=== PATIENT | female | born 1940 | race Caucasian/White ===

== ENCOUNTER 2022-05-11 18:33 | Inpatient (IN) | payer MEDICARE, OTHER ==
[~2022-05-11] VITALS: Ht 175.3 cm; Wt 72.1 kg
[2022-05-11 18:35] VITALS: BP 144/96
--- NOTE | 2022-05-11 18:35 | NUR ---
DR. MONTAÑO EVALUATING PT AT BEDSIDE
--- NOTE | 2022-05-11 18:35 | NUR ---
PATIENT ATTACHED TO TELEMETRY BOX AND TRANSPORTED TO CT BY SAJAN ACCOMPANIED BY PRIMARY RN
--- NOTE | 2022-05-11 18:36 | NUR ---
CODE STROKE CALLED BY DR. MONTAÑO
--- NOTE | 2022-05-11 18:40 | NUR ---
81/F BIBA FROM HOME C/O INCREASED ALOC TODAY. PER EMS, PATIENT DISCHARGED FROM [facility] FOR UTI WITH RX ANTIBIOTICS; COMPLETED ABX 2-3 DAYS AGO. PER EMS, PATIENT NOTED WITH DYSPHASIA EN ROUTE TO ER. PATIENT'S DAUGHTER REPORTS PATIENT LAST SEEN NORMAL @ 1500 BY AT HOME. PATIENT'S DAUGHTER STATES PATIENT STATES SHE GOT HOME AT 1800 AND NOTED PATIENT WITH INCREASED CONFUSION, LETHARGY, AND "MUMBLING SPEECH/ONLY ABLE TO STATE FIRST NAME." DAUGHTER REPORTS PATIENT BASELINE MENTATION A&OX4. PT COMPLETED "DEMENTIA TEST 4 MONTHS AGO WITH MRI SCAN SHOWING NOTHING ABNORMAL - AGE-RELATED." PATIENT PRESENTS A&0X1 TO NAME, DIFFICULTY ARTICULATING WORDS. DR. MONTAÑO AT BEDSIDE. BED LOCKED IN LOWEST POSITION, SIDE RAILS X 2. PMH: HLD, UTI, COPD, HYPOTHYROIDISM MEDS: LEVOTHYROXINE, GABAPENTIN, NEUROTIN, TRAMADOL, TYLENOL #3 NKDA
--- NOTE | 2022-05-11 18:44 | NUR ---
BLOOD DRAWN AND SENT TO LAB. CHEKO DRAWN AND SENT TO LAB
--- NOTE | 2022-05-11 18:52 | NUR ---
PATIENT RETURNED FROM CT BY SAJAN; BACK ONTO BEAMER HELPER.
[2022-05-11 18:54] LABS: BASOPHILS % (AUTO) 0.7 % (0.0-2.0); EOSINOPHILS % (AUTO) 0.7 % (0.0-4.0); HEMATOCRIT 36.1 % (36-48); HEMOGLOBIN 11.9 g/dL (12.0-16.0); LYMPHOCYTES # (AUTO) 1.7 K/uL (2.5-16.5); LYMPHOCYTES % (AUTO) 24.4 % (20.5-51.1); MEAN CORPUSCULAR HEMOGLOBIN 31 pg (27-31); MEAN CORPUSCULAR HGB CONC 33 g/dL (33-37); MONOCYTES # (AUTO) 0.9 K/uL (0.8-1.0); MONOCYTES % (AUTO) 13.1 % (1.7-9.3); NEUTROPHILS # (AUTO) 4.2 K/uL (1.8-7.7); NEUTROPHILS % (AUTO) 61.1 % (42.2-75.2); PLATELET COUNT (AUTO) 369 K/uL (140-450); RED BLOOD CELL COUNT(AUTO) 3.88 MIL/uL (4.20-5.40); RED CELL DISTRIBUTION WIDTH 14.6 % (11.6-13.7); WHITE BLOOD COUNT (AUTO) 6.9 K/uL (4.8-10.8)
--- NOTE | 2022-05-11 18:57 | NUR ---
ARIA (DAUGHTER) [phone] PHONE CALL WENT TO [employer].
[2022-05-11 19:12] LABS: PROTHROMBIN TIME 9.8 secs (10.8-13.4)
[2022-05-11 19:17] LABS: ALBUMIN 3.8 g/dL (3.4-5.0); ANION GAP 14.6 (8-16); ASPARTATE AMINOTRANSFERASE 30 U/L (15-37); CARBON DIOXIDE 28.3 mmol/L (21-32); CHLORIDE 98 mmol/L (98-107); CREATININE 1.3 mg/dL (0.6-1.3); GLUCOSE 100 mg/dL (74-106); POTASSIUM 3.9 mmol/L (3.5-5.1); SODIUM SERUM 137 mmol/L (136-145); TOTAL BILIRUBIN 0.5 mg/dL (0.0-1.0); UREA NITROGEN, BLOOD 21 mg/dL (7-18)
--- NOTE | 2022-05-11 19:25 | NUR ---
BP 201/86. DR. MONTAÑO MADE AWARE.
--- NOTE | 2022-05-11 19:25 | NUR ---
Report and transfer of care endorsed to MARTHA Camejo.
--- NOTE | 2022-05-11 20:11 | NUR ---
Urine collected sent to lab
--- NOTE | 2022-05-11 20:18 | NUR ---
INITIATED TELENEURO PER DR. MONTAÑO
[2022-05-11 20:21] LABS: APPEARANCE,URINE CLEAR (CLEAR); BILIRUBIN,URINE NEGATIVE (NEGATIVE); BLOOD, URINE NEGATIVE (NEGATIVE); COLOR,URINE YELLOW (YELLOW); LEUKOCYTE ESTERASE ,URINE NEGATIVE (NEGATIVE); NITRITE, URINE NEGATIVE (NEGATIVE); UGLUCOSE NEGATIVE (NEGATIVE)
--- NOTE | 2022-05-11 21:00 | NUR ---
Pt was taken to CT
--- NOTE | 2022-05-11 21:19 | NUR ---
Pt back from CT, reconnected to lean manager. Awake and responsive. No c/o discomfort at this time
[2022-05-11] MEDS ORDERED: ACETAMINOPHEN 325 MG TAB PO PRN (22:55)
[2022-05-11] MEDS ORDERED: DOCUSATE SODIUM 100 MG GELCAP PO PRN (22:55)
[2022-05-11] MEDS ORDERED: MAG SULF 2000 MG/WATER PREMIX 50 ML IV PRN (22:55)
[2022-05-11] MEDS ORDERED: ONDANSETRON 4 MG/2 ML VIAL IVP PRN (22:55)
[2022-05-11] MEDS ORDERED: HYDR12.51 PO (23:26)
[2022-05-11] MEDS ORDERED: TRAZ-343 PO (23:26)
[2022-05-11] MEDS ORDERED: SIMV-33 PO (23:26)
[2022-05-11] MEDS ORDERED: GABA300C PO (23:26)
--- NOTE | 2022-05-11 23:39 | NUR ---
Report given to Donell THOMAS
--- NOTE | 2022-05-11 23:41 | NUR ---
Received call from pt daughter regarding recent fall 2 days ago. Pt transferred to floor. Relayed to Donell THOMAS and gave daughters phone number
--- NOTE | 2022-05-11 23:41 | NUR ---
Petrona - Daughter: [phone]
[2022-05-12] VITALS (7 sets, daily range): BP systolic 132–190; BP diastolic 44–87
--- NOTE | 2022-05-12 01:00 | NUR ---
Pt admitted and oriented to rm 110B from Ed at 00:27, with c/o Aloc, r/o TIA. Pt alert and oriented x2 and verbally responsive , B/p noted 190/74, HR 78. Pt denies pain. irritable and confused and refused to answer some admission questions. Md catalytic converter operator helper notified. await response.
[2022-05-12] MEDS: MORPHINE SULFATE 2 MG/ML SYR IVP PRN (01:49)
--- NOTE | 2022-05-12 02:20 | NUR ---
pt assessed and medicated for generalized pain 09/12 at 01:49 , pt's b/p decreased to 171/66, denies pain at this time
--- NOTE | 2022-05-12 06:30 | NUR ---
Dr. Walters combination technician ordered Hydralazine 10 po prn SBP > 160. Pt's last b/p 145/66, asleep. will endorse pt care to incoming RN
--- NOTE | 2022-05-12 07:30 | NUR ---
RECEIVED ASLEEP. IN NO ACUTE DISTRESS, ALL SAFETY MEASURES IN PLACE CALL LIGHT WITHIN REACH
[2022-05-12 07:33] LABS: BASOPHILS # (AUTO) 0.1 K/uL (0.00-0.22); BASOPHILS % (AUTO) 0.8 % (0.0-2.0); EOSINOPHILS % (AUTO) 0.5 % (0.0-4.0); HEMATOCRIT 33.7 % (36-48); HEMOGLOBIN 11.4 g/dL (12.0-16.0); LYMPHOCYTES # (AUTO) 1.8 K/uL (2.5-16.5); LYMPHOCYTES % (AUTO) 27.5 % (20.5-51.1); MEAN CORPUSCULAR HEMOGLOBIN 31 pg (27-31); MEAN CORPUSCULAR HGB CONC 34 g/dL (33-37); MONOCYTES % (AUTO) 16.1 % (1.7-9.3); NEUTROPHILS # (AUTO) 3.6 K/uL (1.8-7.7); NEUTROPHILS % (AUTO) 55.1 % (42.2-75.2); PLATELET COUNT (AUTO) 316 K/uL (140-450); RED BLOOD CELL COUNT(AUTO) 3.66 MIL/uL (4.20-5.40); RED CELL DISTRIBUTION WIDTH 14.6 % (11.6-13.7); WHITE BLOOD COUNT (AUTO) 6.5 K/uL (4.8-10.8)
[2022-05-12 07:38] LABS: ANION GAP 13.3 (8-16); CARBON DIOXIDE 28.1 mmol/L (21-32); CHLORIDE 100 mmol/L (98-107); CREATININE 1.1 mg/dL (0.6-1.3); GLUCOSE 96 mg/dL (74-106); POTASSIUM 3.4 mmol/L (3.5-5.1); SODIUM SERUM 138 mmol/L (136-145); UREA NITROGEN, BLOOD 19 mg/dL (7-18)
--- NOTE | 2022-05-12 08:08 | NUR ---
DR BO AND MEDICAL STUDENTS AT BEDSIDE ASSESSING PT.
--- NOTE | 2022-05-12 09:10 | NUR ---
PATIENT HAS BEEN SCREENED AND CATEGORIZED MODERATE NUTRITION RISK. PATIENT WILL BE SEEN WITHIN 3-5 DAYS OF ADMISSION. REVIEWED BY LEO ROSENBAUM RD
[2022-05-12] MEDS: ATORVASTATIN 20 MG TAB PO SCH (09:29)
[2022-05-12] MEDS: POTASSIUM CHLORIDE 10 MEQ TABER PO PRN (09:29)
[2022-05-12] MEDS: ASPIRIN 81 MG TAB.CHEW PO SCH (09:29)
[2022-05-12] MEDS: LORazepam 2 MG/ML VIAL IVP PRN (10:23)
--- NOTE | 2022-05-12 12:15 | NUR ---
SPOKE WITH PTS DAUGHTER, ARIA. ALL QUESTIONS HAVE BEEN ANSWERED AT THIS TIME, NO REQUESTS AT THIS TIME.
--- NOTE | 2022-05-12 13:19 | NUR ---
DC PLANNING PER NOTES, PT ALERT AND ORIENTED X2, THEREFORE, SW OUTREACHED TO PTS EC- DAUGHTER, ARIA AT [phone] TO GATHER COLLATERAL INFORMATION HOWEVER, NO ANSWER. MESSAGE WAS LEFT REQUESTING A RETURN PHONE CALL.
[2022-05-12] MEDS: hydrALAZINE 10 MG TAB PO PRN (15:19)
--- NOTE | 2022-05-12 15:19 | NUR ---
PRN BP MEDICATION, FOR 172/87 HEART RATE 77 PER MD ORDER
[2022-05-12] MEDS: ZOLPIDEM 10 MG TAB PO PRN (23:46)
[2022-05-13] VITALS: BP 151/90
[2022-05-13 04:00] VITALS: BP 157/92
--- NOTE | 2022-05-13 07:19 | NUR ---
RECEIVED REPORT FROM SUPERVISOR TUNNEL HEADING NURSE FOR CONTINUITY OF CARE, POC DISCUSSED. PT IS RESTING IN BED, ABLE TO MAKE NEEDS KNOWN. ALL SUPERVISOR TUNNEL HEADING EVENTS DISCUSSED. ALL SAFETY MEASURES IN PLACE, CALL LIGHT WITHIN REACH.
[2022-05-13 07:29] LABS: ANION GAP 12.7 (8-16); BASOPHILS % (AUTO) 0.7 % (0.0-2.0); CARBON DIOXIDE 28.8 mmol/L (21-32); CHLORIDE 99 mmol/L (98-107); CREATININE 1.2 mg/dL (0.6-1.3); EOSINOPHILS # (AUTO) 0.2 K/uL (0-0.4); EOSINOPHILS % (AUTO) 2.5 % (0.0-4.0); GLUCOSE 99 mg/dL (74-106); HEMOGLOBIN 11.9 g/dL (12.0-16.0); LYMPHOCYTES # (AUTO) 1.3 K/uL (2.5-16.5); LYMPHOCYTES % (AUTO) 19.5 % (20.5-51.1); MEAN CORPUSCULAR HEMOGLOBIN 31 pg (27-31); MEAN CORPUSCULAR HGB CONC 34 g/dL (33-37); MEAN CORPUSCULAR VOLUME 91.1 fL (80-94); MONOCYTES % (AUTO) 14.7 % (1.7-9.3); NEUTROPHILS # (AUTO) 4.2 K/uL (1.8-7.7); NEUTROPHILS % (AUTO) 62.6 % (42.2-75.2); PLATELET COUNT (AUTO) 328 K/uL (140-450); POTASSIUM 3.5 mmol/L (3.5-5.1); RED BLOOD CELL COUNT(AUTO) 3.85 MIL/uL (4.20-5.40); RED CELL DISTRIBUTION WIDTH 14.8 % (11.6-13.7); SODIUM SERUM 137 mmol/L (136-145); UREA NITROGEN, BLOOD 18 mg/dL (7-18); WHITE BLOOD COUNT (AUTO) 6.7 K/uL (4.8-10.8)
[2022-05-13 08:00] VITALS: BP 210/76
[2022-05-13] MEDS ORDERED: hydrALAZINE 20 MG/ML VIAL IVP PRN ×2 (08:10→15:30)
--- NOTE | 2022-05-13 08:20 | NUR ---
DR BO AND MEDICAL STUDENTS AT BEDSIDE
[2022-05-13] MEDS: ATORVASTATIN 20 MG TAB PO SCH (08:28)
[2022-05-13] MEDS: ASPIRIN 81 MG TAB.CHEW PO SCH (08:28)
--- NOTE | 2022-05-13 09:29 | NUR ---
REASSESSMENT OF BLOOD PRESSURE AFTER PRN HYDRALAZINE- 116/83 HR 94. PT REPORTS ALL NEEDS CURRENTLY BEING MET, ALL SAFETY MEASURES IN PLACE, CALL LIGHT WITHIN REACH.
[2022-05-13 12:00] VITALS: BP 136/82
--- NOTE | 2022-05-13 12:28 | NUR ---
SPOKE TO PTS DAUGHTER, ARAI REGARDING UPDATE AND ELEVATED BLOOD PRESSURE, PENDING NEURO CONSULT. DAUGHTER STATES SHE WOULD LIKE THE HOSPITALIST TO GIVE HER A CALL, NUMBER GIVEN DR BO. ALSO INFORMED BETZY THAT DR CHAO HAS NOT ANSWERED CALLS REGARDING PENDING CONSULT.
--- NOTE | 2022-05-13 12:50 | NUR ---
INFORMED PT ON THE CHANGE OF PLAN AND STILL PENDING NEURO CHECK. PT STATES SHE UNDERSTANDS AND AGREES SHE WOULD RATHER STAY THAN GO HOME AND HAVE SOMETHING HAPPEN.
--- NOTE | 2022-05-13 15:36 | NUR ---
NOTIFIED REGARDING BLOOD PRESSURE OF 207/87 HR 96, TORB FOR IVP HYDRALAZINE 20MG. IV PATENT AND INTACT
[2022-05-13 16:00] VITALS: BP 207/87
--- NOTE | 2022-05-13 16:32 | NUR ---
DC PLANNING ASSESSMENT COMPLETE PLEASE REFER TO ASSESSMENT FOR ADDITIONAL DETAILS PER NOTES, PT ANOX2 THEREFORE, COLLAT INFO GATHERED FROM PTS DAUGHTER ARIA. PT IS AN 81 YR OLD FEMALE ADMITTED TO [facility] FROM HOME WITH DX OF R/O OF TRANSIENT ISCHEMIC ATTACK. PT HAS PAST MEDICAL HX OF HIGH CHOLESTEROL, COPD, AND HYPOTHYROIDISM PT IS RPEORTED TO UTILIZE FWW/CANE AND IS REPORTED TO COMPLETE ADL'S INDEPENDENTLY. PT IS REPORTED TO HAVE RECEIVED [facility], HOWEVER, ARIA STRUGGLED TO RECALL NAME OF AGENCY. PT IS REPORTED TO RESIDE IN A TWO STORY HOME WITH HER DAUGHTER AND SON IN [place], AT THE ADDRESS LISTED ON FILE. ARIA REPORTS TENTATIVE DC PLAN IS FOR PT TO DC WITH HOME HEALTH PT. ARIA REPORTS SPEAKING WITH [facility] ON RECOMMENDATION FOR ACUTE CARE SNF. HOWEVER, REPORTS PATIENT WOULD MOST LIKELY NOT BE AGREEABLE WITH SNF RX. ARIA REQUESTING CALL WITH PHYSICAL THERAPIST TO DISCUSS TO RECOMMENDATIONS. ENDORSED TO PHYSICAL THERAPIST. Addendum: 05/13/22 at 1633 by Singh PURCELL Amended: Links added.
[2022-05-13] MEDS: hydrALAZINE 10 MG TAB PO PRN (16:42)
--- NOTE | 2022-05-13 17:50 | NUR ---
DR CHAO AT BEDSIDE ASSESSING PT
--- NOTE | 2022-05-13 19:35 | NUR ---
RECEIVED REPORT FROM MARTHA DÍAZ FOR CONTINUITY OF CARE. PT AWAKE, SITTING IN BED. ON CORNICE UPHOLSTERER. RESPIRATIONS EVEN AND UNLABORED ON RA. DENIES PAIN. SKIN INTACT, WARM AND DRY TO TOUCH. INITIAL ASSESSMENT DONE. POC DISCUSSED. CALL LIGHT WITHIN REACH. SAFETY PRECAUTIONS IN PLACE.
--- NOTE | 2022-05-13 19:36 | NUR ---
SPOKE TO PTS DAUGHTER, NUMBER PROVIDED TO MD REGARDING CALLING DAUGHTER TO GIVE MORE INDEPTH UPDATE.
[2022-05-13 20:00] VITALS: BP 132/52
--- NOTE | 2022-05-13 21:10 | NUR ---
ENDORSED PT TO MARTHA ANDERSON. PT IN STABLE CONDITION.
[2022-05-13] MEDS: MORPHINE SULFATE 2 MG/ML SYR IVP PRN (22:55)
[2022-05-14] VITALS: BP 153/50
[2022-05-14 04:00] VITALS: BP 163/60
[2022-05-14 07:24] LABS: BASOPHILS % (AUTO) 0.5 % (0.0-2.0); EOSINOPHILS # (AUTO) 0.1 K/uL (0-0.4); EOSINOPHILS % (AUTO) 1.5 % (0.0-4.0); HEMOGLOBIN 12.2 g/dL (12.0-16.0); LYMPHOCYTES # (AUTO) 1.3 K/uL (2.5-16.5); LYMPHOCYTES % (AUTO) 16.8 % (20.5-51.1); MEAN CORPUSCULAR HEMOGLOBIN 31 pg (27-31); MEAN CORPUSCULAR HGB CONC 34 g/dL (33-37); MEAN CORPUSCULAR VOLUME 93.2 fL (80-94); MONOCYTES # (AUTO) 1.2 K/uL (0.8-1.0); MONOCYTES % (AUTO) 15.3 % (1.7-9.3); NEUTROPHILS # (AUTO) 5.2 K/uL (1.8-7.7); NEUTROPHILS % (AUTO) 65.9 % (42.2-75.2); PLATELET COUNT (AUTO) 340 K/uL (140-450); RED BLOOD CELL COUNT(AUTO) 3.87 MIL/uL (4.20-5.40); RED CELL DISTRIBUTION WIDTH 15.2 % (11.6-13.7); WHITE BLOOD COUNT (AUTO) 7.9 K/uL (4.8-10.8)
[2022-05-14 07:53] LABS: ANION GAP 13.7 (8-16); CARBON DIOXIDE 26.8 mmol/L (21-32); CHLORIDE 98 mmol/L (98-107); CREATININE 1.1 mg/dL (0.6-1.3); GLUCOSE 95 mg/dL (74-106); POTASSIUM 3.5 mmol/L (3.5-5.1); SODIUM SERUM 135 mmol/L (136-145); UREA NITROGEN, BLOOD 20 mg/dL (7-18)
[2022-05-14 08:00] VITALS: BP 192/80
[2022-05-14] MEDS: ATORVASTATIN 20 MG TAB PO SCH (09:57)
[2022-05-14] MEDS: ASPIRIN 81 MG TAB.CHEW PO SCH (09:58)
[2022-05-14] MEDS: hydrALAZINE 10 MG TAB PO PRN ×2 (09:58→18:11)
--- NOTE | 2022-05-14 11:13 | NUR ---
SCREEN FOR LOW LORE SCALE AT RISK, CONTINUE TO FOLLOW PRESSURE ULCER PREVENTION INTERVENTIONS. -TURN AND REPOSITION PATIENT Q 2H, ASSIST IF NEEDED -ASSESS AND MONITOR SKIN CONDITION DURING POSITION CHANGES -OFFLOAD BILATERAL HEELS BY PLACING PILLOWS UNDER CALVES AT ALL TIMES, UNLESS OTHERWISE CONTRAINDICATED -PRESSURE REDISTRIBUTION BY PLACING PILLOWS AND OFFLOADING SACRALCOCCYX -KEEP SKIN CLEAN AND DRY AT ALL TIMES.
[2022-05-14 12:00] VITALS: BP 141/63
[2022-05-14] MEDS: LORazepam 2 MG/ML VIAL IVP PRN (14:11)
[2022-05-14 16:00] VITALS: BP 205/75
--- NOTE | 2022-05-14 18:00 | NUR ---
pt awake,alert,anxious,wants to go home, called and notified,called neurologist to get ok to d/c pt per dr cullen requests,yet, called and said pt not cleared to d/c both patient and her daughter kendy notified not medical cleared yet to d/c per neurology requests pt BP elevated 205/75,give apresoline 10mg po as prn order for HTN.continue to monitor pt.
--- NOTE | 2022-05-14 19:10 | NUR ---
RECEIVED PT FROM MORNING NURSE. PT IS AOX3-4, ON BED REST. PT IS ON ROOM AIR AND ON CCHO DIET. PT HAS IV ON LEFT FOREARM G20 SALINE LOCK. PT SKIN IS INTACT. NO COMPLAIN OF PAIN AT THIS TIME. NO S/S OF RESPIRATORY DISTRESS NOTED. ALL SAFETY MEASURES IMPLEMENTED. BED IN LOW POSITION, BED WHEELS ON LOCK AND CALL LIGHT WITHIN REACH.
[2022-05-14 20:00] VITALS: BP 205/110
--- NOTE | 2022-05-14 20:52 | NUR ---
NOTIFIED DR. HIGH REGARDING PT'S BP OF 205/110 AND HYDRALAZINE WAS GIVEN AT AROUND 181. DR. HIGH ORDER HYDROCHLOROTHIAZIDE 12.5 PO DAILY. ORDER WAS MADE AND CARRIED OUT.
[2022-05-14] MEDS: hydroCHLOROthiazide 25 MG TAB PO SCH (22:05)
[2022-05-15] VITALS: BP 158/97
--- NOTE | 2022-05-15 | NUR ---
PT IS ON SLEEP. CHEST RISE AND FALL SYMMETRICALLY NOTED. RESPIRATION IS EVEN AND UNLABORED. NO S/S OF RESPIRATORY DISTRESS NOTED. ALL SAFETY MEASURES IMPLEMENTED. BED IN LOW POSITION, BED WHEELS ON LOCK AND CALL LIGHT WITHIN REACH.
--- NOTE | 2022-05-15 02:00 | NUR ---
MORNING CARE WAS DONE TO PT. CHANGED CHUCKS, LINENS AND GOWN. NO S/S OF RESPIRATORY DISTRESS NOTED. ALL SAFETY MEASURES IMPLEMENTED. BED IN LOW POSITION, BED WHEELS ON LOCK AND CALL LIGHT WITHIN REACH.
[2022-05-15] MEDS: hydrALAZINE 10 MG TAB PO PRN (03:59)
--- NOTE | 2022-05-15 03:59 | NUR ---
PRN HYDRALAZINE WAS GIVEN TO PT DUE TO BP OF 183/78
[2022-05-15 04:00] VITALS: BP 183/78
--- NOTE | 2022-05-15 04:59 | NUR ---
PT CURRENT BP IS 158/75 AFTER 1HR OF TAKING HYDRALAZINE
[2022-05-15 06:36] LABS: BASOPHILS % (AUTO) 0.2 % (0.0-2.0); EOSINOPHILS # (AUTO) 0.1 K/uL (0-0.4); EOSINOPHILS % (AUTO) 0.4 % (0.0-4.0); HEMATOCRIT 39.2 % (36-48); HEMOGLOBIN 12.7 g/dL (12.0-16.0); MEAN CORPUSCULAR HEMOGLOBIN 31 pg (27-31); MEAN CORPUSCULAR HGB CONC 32 g/dL (33-37); MEAN CORPUSCULAR VOLUME 94.3 fL (80-94); MONOCYTES # (AUTO) 1.7 K/uL (0.8-1.0); NEUTROPHILS # (AUTO) 8.8 K/uL (1.8-7.7); PLATELET COUNT (AUTO) 359 K/uL (140-450); RED BLOOD CELL COUNT(AUTO) 4.15 MIL/uL (4.20-5.40); RED CELL DISTRIBUTION WIDTH 14.7 % (11.6-13.7); WHITE BLOOD COUNT (AUTO) 11.6 K/uL (4.8-10.8)
[2022-05-15 06:57] LABS: ANION GAP 14.6 (8-16); CARBON DIOXIDE 26.4 mmol/L (21-32); CHLORIDE 96 mmol/L (98-107); CREATININE 1.1 mg/dL (0.6-1.3); GLUCOSE 108 mg/dL (74-106); SODIUM SERUM 134 mmol/L (136-145); UREA NITROGEN, BLOOD 20 mg/dL (7-18)
--- NOTE | 2022-05-15 07:18 | NUR ---
PT IS STABLE. ENDORSED PT TO MORNING SHIFT NURSE FOR CONTINUITY OF CARE.
[2022-05-15 07:30] LABS: LYMPHOCYTES % (AUTO) 8.8 % (20.5-51.1); NEUTROPHILS % (AUTO) 75.9 % (42.2-75.2)
--- NOTE | 2022-05-15 07:30 | NUR ---
RECEIVED PATIENT FROM RUBBER AND PLASTICS WORKER NURSE. PATIENT SLEEPING IN BED. CHEST RISING AND FALLING EVENLY.CALL LIGHT WITHIN REACH.ALL SAFETY MEASURES IN PLACE.WILL CONTINUE TO MONITOR.
[2022-05-15 07:31] LABS: MONOCYTES % (AUTO) 14.7 % (1.7-9.3)
[2022-05-15 08:00] VITALS: BP 165/89
[2022-05-15] MEDS: ATORVASTATIN 20 MG TAB PO SCH (08:39)
[2022-05-15] MEDS: ASPIRIN 81 MG TAB.CHEW PO SCH (08:39)
[2022-05-15] MEDS: POTASSIUM CHLORIDE 10 MEQ TABER PO PRN (08:42)
[2022-05-15] MEDS: hydroCHLOROthiazide 25 MG TAB PO SCH (08:42)
--- NOTE | 2022-05-15 09:53 | NUR ---
FREQUENT ROUNDS DONE. PATIENT ALERT AND RESPONSES VERBALLY.ALL MORNING MEDICATIONS GIVEN, MORNING CARE DONE.ALL NEEDS MET AT THIS TIME. NO OTHER SIGNS OF DISTRESS NOTED.WILL CONTINUE TO MONITOR.
--- NOTE | 2022-05-15 10:38 | NUR ---
PAGED DR CHAO PER DR CROWE REQUEST FOR NO VASCUALR SURGEON AND NEEDING TO TRANSFER TO [facility], HOWEVER PT WANTS TO GO HOME.
[2022-05-15 12:00] VITALS: BP 159/69
[2022-05-15 16:00] VITALS: BP 155/88
--- NOTE | 2022-05-15 18:14 | NUR ---
FREQUENT ROUNDS DONE.PATIENT ASKING FOR DC DATE. CLARIFIED REGARDING THE NEUROLOGISTS RESPONSE.PROVIDED DINNER TRAY. VS . BP 147/67, RR 20, TEMP 98.2, MT 121, O2 SAT 94%. RHYTHM SHOWS ST . NO OTHER DISTRESS NOTED. ALL NEEDS MET AT THIS TIME.
--- NOTE | 2022-05-15 19:05 | NUR ---
ENDORSED THE PATIENT TO LEHR OPERATOR NURSE FOR THE CONTINUITY OF CARE.
--- NOTE | 2022-05-15 19:06 | NUR ---
RECEIVED PT FROM MORNING NURSE. PT IS AOX3-4, ON BED REST. PT IS ON ROOM AIR AND ON CCHO DIET. PT HAS IV ON LEFT FOREARM G20 SALINE LOCK. PT HAS PUREWICK AND PT SKIN IS INTACT. NO COMPLAIN OF PAIN AT THIS TIME. NO S/S OF RESPIRATORY DISTRESS NOTED. ALL SAFETY MEASURES IMPLEMENTED. BED IN LOW POSITION, BED WHEELS ON LOCK AND CALL LIGHT WITHIN REACH.
[2022-05-15 20:00] VITALS: BP 159/80
[2022-05-15] MEDS: ZOLPIDEM 10 MG TAB PO PRN (20:57)
--- NOTE | 2022-05-15 20:57 | NUR ---
PRN SLEEP MEDICATION WAS GIVEN TO PT PER PT REQUEST. NO S/S OF RESPIRATORY DISTRESS NOTED. ALL SAFETY MEASURES IMPLEMENTED. BED IN LOW POSITION, BED WHEELS ON LOCK AND CALL LIGHT WITHIN REACH.
[2022-05-15] MEDS ORDERED: hydroCHLOROthiazide 25 MG TAB PO SCH (21:00)
--- NOTE | 2022-05-15 22:00 | NUR ---
PT WAS GIVEN WARM BLANKET. NO S/S RESPIRATORY DISTRESS NOTED. ALL SAFETY MEASURES IMPLEMENTED. BED IN LOW POSITION, BED WHEELS ON LOCK AND CALL LIGHT WITHIN REACH.
[2022-05-16] VITALS: BP 111/75
--- NOTE | 2022-05-16 | NUR ---
PT IS SLEEPING. CHEST RISE AND FALL SYMMETRICALLY NOTED. RESPIRATION IS EVEN AND UNLABORED. NO S/S RESPIRATORY DISTRESS NOTED. ALL SAFETY MEASURES IMPLEMENTED. BED IN LOW POSITION, BED WHEELS ON LOCK AND CALL LIGHT WITHIN REACH.
--- NOTE | 2022-05-16 02:00 | NUR ---
CHECKED THE PT STILL SLEEPING. CHEST RISE AND FALL SYMMETRICALLY NOTED. RESPIRATION IS EVEN AND UNLABORED. NO S/S RESPIRATORY DISTRESS NOTED. ALL SAFETY MEASURES IMPLEMENTED. BED IN LOW POSITION, BED WHEELS ON LOCK AND CALL LIGHT WITHIN REACH.
[2022-05-16 04:00] VITALS: BP 165/106
[2022-05-16] MEDS: hydrALAZINE 10 MG TAB PO PRN ×2 (04:03→09:27)
--- NOTE | 2022-05-16 04:03 | NUR ---
PRN HYDRALAZINE WAS GIVEN TO PT DUE TO BP OF 165/106
--- NOTE | 2022-05-16 05:00 | NUR ---
PT CURRENT BP IS 158/83 AFTER TAKING HYDRALAZINE.
--- NOTE | 2022-05-16 07:05 | NUR ---
PT IS STABLE. ENDORSED PT TO MORNING NURSE FOR CONTINUITY OF CARE.
[2022-05-16 07:11] LABS: BASOPHILS % (AUTO) 0.4 % (0.0-2.0); EOSINOPHILS # (AUTO) 0.1 K/uL (0-0.4); EOSINOPHILS % (AUTO) 1.3 % (0.0-4.0); HEMATOCRIT 36.7 % (36-48); HEMOGLOBIN 12.1 g/dL (12.0-16.0); LYMPHOCYTES % (AUTO) 10.2 % (20.5-51.1); MEAN CORPUSCULAR HEMOGLOBIN 31 pg (27-31); MEAN CORPUSCULAR HGB CONC 33 g/dL (33-37); MEAN CORPUSCULAR VOLUME 92.9 fL (80-94); MONOCYTES # (AUTO) 1.6 K/uL (0.8-1.0); MONOCYTES % (AUTO) 15.4 % (1.7-9.3); NEUTROPHILS # (AUTO) 7.4 K/uL (1.8-7.7); NEUTROPHILS % (AUTO) 72.7 % (42.2-75.2); PLATELET COUNT (AUTO) 329 K/uL (140-450); RED BLOOD CELL COUNT(AUTO) 3.95 MIL/uL (4.20-5.40); RED CELL DISTRIBUTION WIDTH 15.2 % (11.6-13.7); WHITE BLOOD COUNT (AUTO) 10.2 K/uL (4.8-10.8)
[2022-05-16 07:27] LABS: CHLORIDE 95 mmol/L (98-107); CREATININE 1.1 mg/dL (0.6-1.3); GLUCOSE 105 mg/dL (74-106); SODIUM SERUM 134 mmol/L (136-145); UREA NITROGEN, BLOOD 20 mg/dL (7-18)
[2022-05-16 08:00] VITALS: BP 188/82
[2022-05-16] MEDS: ATORVASTATIN 20 MG TAB PO SCH (09:22)
[2022-05-16] MEDS: ASPIRIN 81 MG TAB.CHEW PO SCH (09:23)
[2022-05-16] MEDS: hydroCHLOROthiazide 25 MG TAB PO SCH (09:26)
[2022-05-16] MEDS: POTASSIUM CHLORIDE 10 MEQ TABER PO PRN (09:28)
[2022-05-16 12:00] VITALS: BP 194/109
--- NOTE | 2022-05-16 12:04 | NUR ---
DC PLANNING: PATIENT HAS AN ORDER FOR TRANSFER TO HIGHER LEVEL OF CARE FOR VASCULAR SURGERY EVALUATION. FAXED TO PT'S INSURANCE [facility] [phone]. PER CONCRETE MIXER ES IS THE CM AND WILL CALL BACK. CM TO FOLLOW Addendum: 05/16/22 at 1509 by Lissy Prabhakar RN DC PLANNING: CM CALLED [facility] SPOKE WITH CONCRETE MIXER MADELINE STILL REVIEWING AND AWAITING FOR THEIR AG EQUIPMENT FIELD SERVICE TECHNICIAN TO APPROVE IT. CM CALLED PT'S DAUGHTER ARIA UPDATED THE TRANSFER STATUS. CM TO FOLLOW Addendum: 05/16/22 at 1634 by Lissy Prabhakar RN DC PLANNING: RECEIVED A CALL FROM [facility] [phone] SPOKE WITH ES TRACY STATED WILL CHECK A BED AT [facility] AND [facility]. CM PROVIDE DR SMITH'S CELL PHONE AND UNIT NUMBER . CM CALLED ARIA GARRETT REGARDING TRANSFER. CM TO FOLLOW Addendum: 05/17/22 at 1115 by Lissy Prabhakar RN DC PLANNING: CALLED [facility] [phone] SPOKE WITH ES CORREA STILL LOOKING FOR A BED TO THE [facility] AND THEIR MD DR DANICA CRUZ LEFT A MESSAGE FOR DR BERRY. NOTIFIED DR SMITH. CM TO FOLLOW Addendum: 05/18/22 at 1207 by Lissy Prabhakar RN DC PLANNING: RECEIVED A CALL FROM [facility] SPOKE WITH FREEMAN CORREA UNABLE TO GET AUTHORIZATION FROM THE INSURANCE LEFT A MESSAGE TO ES AT [facility] SEVERAL TIMES. CM CALLED [facility] SPOKE WITH ES STATED [facility] AG EQUIPMENT FIELD SERVICE TECHNICIAN LEFT A MESSAGE FOR DR BERRY AND NOT GETTING CALL BACK , ES STATED LET OUR DR TO CALL VASCULAR SURGEON DR MITCHELL GOMEZ SPOKE WITH DR DIAMOND AND RECOMMENDED TO HAVE MRI AND TRANSFER TO A HOSPITAL WHO HAS MRI. CM CALLED PT'S DAUGHTER SPOKE WITH ARIA NOTIFIED HER THE SITUATION. PER ARIA WILL CALL THE INSURANCE. FAXED TO [facility] . CM TO FOLLOW Addendum: 05/18/22 at 1346 by Lissy Prabhakar RN DC PLANNING: RECEIVED A CALL FROM [facility] SPOKE WITH [place] STATED DR DANIELA CHANEY ACCEPTED PATIENT AND REQUESTING AUTHORIZATION. CALLED ES TRACY AT [facility] LEFT A MESSAGE. CM TO FOLLOW Addendum: 05/18/22 at 1650 by Lissy Prabhakar RN DC PLANNING: RECEIVED A CALL FROM [facility] SPOKE WITH [place] STATED ACCEPTED PATIENT AND AWAITING FOR BED CALLED ES PROVIDE THE AUTH # [id number] CALLED [facility] ARRANGED TRANSPORT PLACE IT WILL CALL. CM TO FOLLOW
[2022-05-16] MEDS ORDERED: METOPROLOL 25 MG TAB PO SCH (13:30)
--- NOTE | 2022-05-16 14:51 | NUR ---
05/16/22 RD INITIAL ASSESSMENT COMPLETED PLEASE REFER TO NUTRITION ASSESSMENT UNDER CARE ACTIVITY FOR ESTIMATED NUTRITIONAL NEEDS. 1. CONTINUE CCHO 60 GM DIET TOLERATED 2. MONITOR PO INTAKE, GI SYMPTOMS, NUTRITION RELATED LAB VALUES 3. RD TO FOLLOW-UP 7 DAYS, LOW RISK REVIEWED BY LEO ROSENBAUM RD
[2022-05-16 16:00] VITALS: BP 162/99
[2022-05-16] MEDS ORDERED: LORazepam 2 MG/ML VIAL IVP PRN (16:45)
--- NOTE | 2022-05-16 19:47 | NUR ---
ENDORSE PATIENT IN STABLE CONDITION TO PM SHIFT NURSE WHILE IV ANTIBIOTIC INFUSING VIA L. WRIST PIV SITE Addendum: 05/16/22 at 1949 by Nalini Galicia RN WRONG PATIENT ENDORSE PATIENT IN STABLE CONDITION TO PM SHIFT NURSE PIV L. FOREARM SALINE LOCK
--- NOTE | 2022-05-16 19:50 | NUR ---
RECEIVED PATIENT FOR CONTINUITY OF CARE. PATIENT LYING ON THE BED, NO SIGNS OF DISTRESS NOTED, NO SIGNS OF PAIN NOTED, LL SAFETY MEASURES IN PLACE.
[2022-05-16 20:00] VITALS: BP 126/60
[2022-05-16] MEDS: LORazepam 1 MG TAB PO SCH (20:07)
[2022-05-16] MEDS: METOPROLOL 25 MG TAB PO SCH (20:08)
--- NOTE | 2022-05-16 20:10 | NUR ---
SCHEDULED MEDICATIONS GIVEN ORDERED.
[2022-05-17] VITALS: BP 144/61
--- NOTE | 2022-05-17 00:12 | NUR ---
CHECKED ON PATIENT, IS ASLEEP, NO SIGNS OF DISTRESS NOTED, NO SIGNS OF PAIN/DISCOMFORT NOTED, ALL SAFETY MEASURES IN PLACE.
--- NOTE | 2022-05-17 01:05 | NUR ---
RECEIVED CALL FROM [facility]. PER REPORT FROM DAY NURSE PATIENT HAS REFERRAL TO TRANSFER TO HIGH LEVEL OF CARE FOR VASCULAR EVALUATION. STAFF FROM [facility] WILL FOLLOW -UP WITH LAUNDRY FOLDER IN THE MORNING.
[2022-05-17 04:00] VITALS: BP 159/84
[2022-05-17] MEDS: LORazepam 1 MG TAB PO SCH ×3 (05:06→20:50)
--- NOTE | 2022-05-17 05:07 | NUR ---
SCHEDULED MEDICATIONS GIVEN ORDERED. NO SIGNS OF DISTRESS NOTED, NO SIGNS OF PAIN, BREATHING EVEN AND NON LABORED. CALL LIGHT WITHIN REACH.
--- NOTE | 2022-05-17 07:35 | NUR ---
ENDORSED PATIENT TO DAY NURSE FOR CONTINUITY OF CARE. PATIENT IN STABLE CONDITION.
[2022-05-17 08:00] VITALS: BP 153/96
--- NOTE | 2022-05-17 08:45 | NUR ---
RECEIVE A FOLLOW UP CALL FROM LUIGI MORAN FOR ARRANGE TRANSFORATION RELATED ISSUE FOR PATIENT AND QUESTION ABOUT PATIENT'S OVER NIGHT MENTAL STATUS. LUIGI ALSO ASK FOR DR. SMITH'S PHONE NUMBER FOR MORE DETAIL ISSUE. WILL FOLLOW UP. Addendum: 05/17/22 at 1448 by Nalini Galicia RN RECEIVE CALL THAT COVID ANTIGEN TEST IS ORDERED FOR PATIENT PART OF PREPARATION FOR TRANSFER TO OTHER HOSPITAL FOR CONTINUE CARE. WILL FOLLOW UP
[2022-05-17] MEDS: METOPROLOL 25 MG TAB PO SCH ×2 (09:44→20:50)
[2022-05-17] MEDS: ATORVASTATIN 20 MG TAB PO SCH (09:44)
[2022-05-17] MEDS: ASPIRIN 81 MG TAB.CHEW PO SCH (09:44)
[2022-05-17] MEDS: FOLIC ACID 1 MG TAB PO SCH (09:45)
[2022-05-17] MEDS: hydroCHLOROthiazide 25 MG TAB PO SCH (09:46)
[2022-05-17] MEDS: THIAMINE 100 MG TAB PO SCH (09:46)
[2022-05-17] MEDS: MULTIVITAMIN 1 TAB PO SCH (09:47)
[2022-05-17 12:00] VITALS: BP 152/85
[2022-05-17 16:00] VITALS: BP 159/79
--- NOTE | 2022-05-17 19:58 | NUR ---
ENDORSE PATIENT TO PM SHIFT NURSE WITH PENDING TRANSFER TO [facility].
[2022-05-17 20:00] VITALS: BP 159/71
--- NOTE | 2022-05-17 20:00 | NUR ---
RECEIVED PATIENT LYING ON THE BED, AWAKE, ALERT AND ORIENTED, NO DISTRESS NOTED, PATIENT DENIES PAIN. IV ACCESS SITE ON LEFT FOREARM, G 20, PATENT AND INTACT. FROM REPORT PATIENT PENDING TRANSFER TO [facility] HOSPITAL. ALL SAFETY MEASURES IN PLACE.
--- NOTE | 2022-05-17 20:50 | NUR ---
SCHEDULED MEDICATIONS GIVEN ORDERED. WILL CONTINUE TO MONITOR THE PATIENT.
[2022-05-18] VITALS: BP 157/79
--- NOTE | 2022-05-18 00:20 | NUR ---
VITALS TAKEN T 98.3, P 81, BP 157/79, RESP 20 O2 SATS 95% ON 2LPM NC. BED SIDE CARE DONE, CALL LIGHT WITHIN REACH, BED IN LOW AND LOCKED POSITION.
--- NOTE | 2022-05-18 02:10 | NUR ---
RECEIVED CALL FROM [facility] STAFFFREDDY. FAXED PATIENT'S COVID 19 ANTIGEN RESULT TO [facility].
[2022-05-18 04:00] VITALS: BP 163/78
[2022-05-18] MEDS: hydrALAZINE 10 MG TAB PO PRN (04:21)
--- NOTE | 2022-05-18 04:21 | NUR ---
PRN APRESOLINE 10MG TABLET GIVEN, BP 163/78, P 96. WILL CONTINUE TO ASSESS PATIENT.
[2022-05-18] MEDS: LORazepam 1 MG TAB PO SCH ×3 (04:31→20:29)
--- NOTE | 2022-05-18 05:21 | NUR ---
BP RECHECKED 163/62, P 90. NO SIGNS OF DISTRESS NOTED, NO SIGNS OF PAIN NOTED. BEDSIDE CARE DONE. ALL SAFETY MEASURES IN PLACE.
--- NOTE | 2022-05-18 07:08 | NUR ---
ENDORSED PATIENT TO DAY NURSE FOR CONTINUITY OF CARE. NEEDS MET THROUGHOUT THE SHIFT. PATIENT IN STABLE CONDITION.
[2022-05-18 08:00] VITALS: BP 174/63
[2022-05-18] MEDS: MULTIVITAMIN 1 TAB PO SCH (09:00)
[2022-05-18] MEDS: LORazepam 2 MG/ML VIAL IVP PRN (10:13)
[2022-05-18] MEDS: ASPIRIN 81 MG TAB.CHEW PO SCH (10:26)
[2022-05-18] MEDS: METOPROLOL 25 MG TAB PO SCH ×2 (10:26→20:28)
[2022-05-18] MEDS: THIAMINE 100 MG TAB PO SCH (10:27)
[2022-05-18] MEDS: FOLIC ACID 1 MG TAB PO SCH (10:29)
[2022-05-18] MEDS: hydroCHLOROthiazide 25 MG TAB PO SCH (10:29)
[2022-05-18] MEDS: ATORVASTATIN 20 MG TAB PO SCH (10:30)
[2022-05-18] MEDS ORDERED: hydroCHLOROthiazide 25 MG TAB PO SCH (10:47)
[2022-05-18] MEDS: APIXABAN 2.5 MG TAB PO SCH ×2 (11:32→20:29)
[2022-05-18 12:00] VITALS: BP 121/72
[2022-05-18 16:00] VITALS: BP 126/56
--- NOTE | 2022-05-18 19:19 | NUR ---
ENDORSE PATIENT IN STABLE CONDITION TO PM SHIFT NURSE WHILE PATIENT REST IN BED. MARGO Gtz FOREARM SALINE LOCK PATENT.
[2022-05-18 20:00] VITALS: BP 161/69
[2022-05-19] VITALS: BP 126/58
--- NOTE | 2022-05-19 01:05 | NUR ---
REPORT GIVEN TO KARLEY THOMAS FROM [facility]. PT GOING TO ROOM 353. WILL CONTINUE TO MONITOR.
--- NOTE | 2022-05-19 01:06 | NUR ---
CALLED JESSICA BLANCO FOR CORE DRILLER AT 0130.
[2022-05-19] MEDS ORDERED: lisinopriL 20 MG TAB PO SCH (09:00)
[2022-05-19] MEDS ORDERED: hydroCHLOROthiazide 25 MG TAB PO SCH (09:00)
== END 2022-05-19 02:35 | disposition short-term general hospital (02) | DRG 305 ==
LOC: MED 18:33 → MTU 23:01 → OBSVTOIN 05-13 12:02
PROVIDERS: ADMIT Family Medicine; ATTEND Family Medicine
DX: I16.1 Hypertensive emergency (principal); G45.9 Transient cerebral ischemic attack, unspecified; E87.1 Hypo-osmolality and hyponatremia; G93.1 Anoxic brain damage, not elsewhere classified; J44.9 Chronic obstructive pulmonary disease, unspecified; E03.9 Hypothyroidism, unspecified; E78.00 Pure hypercholesterolemia, unspecified; I70.90 Unspecified atherosclerosis; E87.6 Hypokalemia; E83.42 Hypomagnesemia; E86.0 Dehydration; F10.90 Alcohol use, unspecified, uncomplicated; E78.5 Hyperlipidemia, unspecified; Z20.822 Contact with and (suspected) exposure to COVID-19; I10 Essential (primary) hypertension
CPT/HCPCS: 99285; G0378; 36415; 70450; 71045; 80048; 80053; 81003; 82948; 83605; 83735; 84484; 85025; 85610; 85730; 86886; 86900; 86901; 87040; 87081; 87086; 97110; 97116; 97163-GP; 97530; G0482; J0360; J2060; J2270; Q0092; Q9967